=== PATIENT | female | born 1965 | race Two or more races ===

== ENCOUNTER 2024-10-01 08:49 | Emergency (ER) | payer BC ==
[~2024-10-01] VITALS: Ht 162.6 cm; Wt 74.4 kg
[2024-10-01] MEDS ORDERED: ONDANSETRON HCL 2 MG/ML VIAL IV STA (09:24)
[2024-10-01] MEDS ORDERED: 0.9 % SODIUM CHLORIDE 1,000 ML IV STA (09:24)
[2024-10-01] MEDS ORDERED: FAMOTIDINE/PF 20 MG in 0.9 % SODIUM CHLORIDE 8 ML IV PUSH STA (09:26)
[2024-10-01] MEDS ORDERED: ONDANSETRON HCL 2 MG/ML VIAL ONE (09:50)
[2024-10-01] MEDS ORDERED: FAMOTIDINE/PF 20 MG/2 ML VIAL ONE (09:51)
[2024-10-01 10:14] LABS: HEMATOCRIT 42.1 % (36.0-45.00); HEMOGLOBIN 14.3 g/dL (12.0-15.00); MEAN CELL VOLUME 90.3 fL (80.00-100.00); MEAN CORPUSCULAR HEMOGLOBIN 30.8 pg (27.00-32.0); MEAN CORPUSCULAR HGB CONC 34.1 g/dl (32.0-36.0); PLATELET COUNT 342 K/uL (150-450); RED BLOOD COUNT 4.66 M/uL (4.00-6.00); RED CELL DISTRIBUTION WIDTH 13.6 % (11.5-14.5)
[2024-10-01 10:36] LABS: CALCIUM 9.5 mg/dL (8.5-10.1); CREATININE SERUM 1.13 mg/dL (0.55-1.02); GFR 49.63; POTASSIUM 3.41 mEq/L (3.5-5.1)
[2024-10-01 11:05] LABS: PH,URINE 5.5 (5.0-8.0); URINE APPEARANCE Cloudy; URINE BILIRRUBIN Small (NEGATIVE); URINE BLOOD Negative; URINE COLOR Dark Yellow; URINE GLUCOSE Negative (NEGATIVE); URINE KETONE Trace (NEGATIVE); URINE LEUKOCYTE Trace; URINE NITRATE Negative
[2024-10-01 11:10] LABS: URINE BACTERIA 635.2 uL (0.0-1933); URINE RBC 11.1 uL (0.0-20.8); URINE WBC 120.7 uL (0.0-23.2)
[2024-10-01 11:43] LABS: URINE CAST > 21.83 uL (0.0-1.40); URINE PROTEIN 100 (NEGATIVE)
== END 2024-10-01 13:58 | disposition home or self-care (01) ==
LOC: ER 08:50
PROVIDERS: Emergency Medicine
DX: K52.89 Other specified noninfective gastroenteritis and colitis (principal)